=== PATIENT | male | born 1960 | race Caucasian/White ===

== ENCOUNTER 2022-07-27 07:53 | Outpatient (REF) | payer OTHER, SELFPAY | END 2022-07-27 07:54 | disposition home or self-care (01) | LOC: HO.SH 07:53 | PROVIDERS: Visit Provider Family Medicine | DX: Z01.118 Encounter for examination of ears and hearing with other abnormal findings (principal); H93.293 Other abnormal auditory perceptions, bilateral | CPT/HCPCS: 92557; 92567; 92588; 92700 ==